=== PATIENT | male | born 1940 | race Caucasian/White ===

== ENCOUNTER 2018-03-22 11:00 | Day surgery (SDC) | payer MEDICARE, BC ==
--- NOTE | 2018-03-22 07:10 | History and Physical - [place] ---
CHIEF COMPLAINT/HISTORY OF CHIEF COMPLAINT: This patient presents with a history of intractable post lumbar laminectomy syndrome and a spinal opioid infusion system infusing Hydromorphone. Over the last number of refills a battery depletion was identified. He is here for pump battery change. PAST MEDICAL HISTORY: Chronic obstructive pulmonary disease, hypertension, and diabetes Type 2. PAST SURGICAL HISTORY: Spinal surgery, shoulder surgery, gastric bypass, shoulder replacement, hernia repair, and knee surgery. MEDICATIONS ON ADMISSION: List to be provided. ALLERGIES: ADHESIVE TAPE, LATEX AND ZITHROMAX. FAMILY/PSYCHOSOCIAL HISTORY: Social history - Caffeine. Family history - Diabetes, coronary artery disease, and cancer. SYSTEMS REVIEW: The patient is appropriate in no acute distress. The remainder of the systems review is positive for bladder dysfunction and peripheral edema. PHYSICAL EXAMINATION: Height is 5'8", weight is 170. Vital signs - Blood pressure 130/90. HEENT: Within normal limits. LUNGS: Clear. HEART: Rapid and regular. ABDOMEN: Nontender. MUSCULOSKELETAL: Examination of the musculoskeletal system shows the pump in the right flank. The incisional site is intact. Chronic pain pattern low back with a right leg extension. Motor and sensory weakness identified in the left lower extremity. Ambulation - Antalgic, assistive device utilized. NEUROLOGIC: Cranial nerves are intact. IMPRESSION: 1. POST LUMBAR LAMINECTOMY SYNDROME, ICD-10 CODE M96.1 WITH RADICULOPATHY, ICD- 10 CODE M4.16 AND M54.17. 2. IMPLANTED SPINAL INFUSION SYSTEM USING HYDROMORPHONE, BATTERY DEPLETION. PLAN: The patient is here on an outpatient basis for replacement of battery. No parameter changes have been made. JOB NUMBER: [id number] [facility]
[~2018-03-22 11:00] MED LIST: ACETAMINOPHEN 1,000 MG/100 ML BTL IV ONE; CEFAZOLIN 2 Gram 2 GM/50 ML BAG IVPB ONE; FAMOTIDINE 20MG TABLET PO ONE; MECLIZINE 25 MG TABLET PO ONE; METOCLOPRAMIDE 10 MG TABLET PO ONE
[2018-03-22] MEDS ORDERED: LIDOCAINE 2% MDV (20MG/ML) 20ML VIAL IV ONE (11:01)
[2018-03-22] MEDS ORDERED: LIDOCAINE 1% W/EPI 1:200,000 MPF 30ML SQ ONE (11:01)
[2018-03-22] MEDS ORDERED: 0.9 % SODIUM CHLORIDE 10 ML VIAL IVP ONE (11:01)
[2018-03-22] MEDS ORDERED: BUPIVACAINE 0.5% W/EPI MPF 30 ML VIAL IVP ONE (11:01)
[2018-03-22] MEDS ORDERED: PROPOFOL 10 MG/ML VIAL IV ONE (11:01)
[2018-03-22] MEDS ORDERED: FENTANYL PF 100MCG/2ML VIAL IV ONE (11:01)
[2018-03-22] MEDS ORDERED: CEFAZOLIN 1G VIAL IM ONE (11:01)
[2018-03-22] MEDS ORDERED: HYDROCODONE/APAP 7.5/325MG TABLET PO PRN ×2 (15:10)
[2018-03-22] MEDS ORDERED: OXYCODONE/APAP 10MG-325MG TABLET PO PRN (15:10)
[2018-03-22] MEDS ORDERED: BUMETANIDE 1 MG TABLET PO PRN (15:49)
[2018-03-22] MEDS ORDERED: DICYCLOMINE HCL 10 MG CAPSULE PO PRN (15:51)
[2018-03-22] MEDS ORDERED: ALBUTEROL HFA 8 GM INHALER INH PRN (15:52)
[2018-03-22] MEDS: ROPINIROLE HCL 1 MG TABLET PO SCH ×2 (16:03→21:30)
[2018-03-22] MEDS: OXYCODONE/APAP 10MG-325MG TABLET PO PRN ×2 (17:54→23:44)
[2018-03-22] MEDS: PREGABALIN (LYRICA) 100MG CAPSULE PO SCH (21:30)
[2018-03-22] MEDS: PANTOPRAZOLE SODIUM 40 MG TABLET PO SCH (21:30)
[2018-03-22] MEDS ORDERED: CALCIUM CARBONATE 500 MG TAB.CHEW PO SCH (22:00)
[2018-03-22] MEDS ORDERED: MIRTAZAPINE 15 MG TABLET PO SCH (22:00)
[2018-03-23] MEDS: OXYCODONE/APAP 10MG-325MG TABLET PO PRN ×2 (04:08→07:30)
[2018-03-23] MEDS ORDERED: LEVOTHYROXINE SODIUM 88 MCG TABLET PO SCH (07:00)
[2018-03-23] MEDS: PANTOPRAZOLE SODIUM 40 MG TABLET PO SCH (07:31)
[2018-03-23] MEDS ORDERED: ALLOPURINOL 100 MG TAB PO SCH (10:00)
[2018-03-23] MEDS ORDERED: BUMETANIDE 1 MG TABLET PO SCH (10:00)
[2018-03-23] MEDS ORDERED: POTASSIUM CHLORIDE 20 MEQ TABLET PO SCH (10:00)
[2018-03-23] MEDS ORDERED: AMIODARONE HCL 200 MG TABLET PO SCH (10:00)
[2018-03-23] MEDS ORDERED: METOPROLOL SUCC 25 MG TAB.ER PO SCH (10:00)
[2018-03-23] MEDS: PREGABALIN (LYRICA) 100MG CAPSULE PO SCH (10:11)
[2018-03-23] MEDS: ROPINIROLE HCL 1 MG TABLET PO SCH (10:13)
--- NOTE | 2018-03-23 20:33 | Operative Note ---
DATE OF SURGERY: 03/22/2018. PREOPERATIVE DIAGNOSES: 1. POST LUMBAR LAMINECTOMY SYNDROME, ICD-10 CODE = M96.1 WITH RADICULOPATHY, ICD-10 CODE = M54.16 AND M54.17. 2. IMPLANTED SPINAL OPIOID INFUSION SYSTEM HYDROMORPHONE WITH PAINFUL PUMP POUCH. SURGERY: 1. FLUOROSCOPIC-GUIDED INCISION, SUBCUTANEOUS DISSECTION, AND REMOVAL AND RELOCATION OF PUMP FROM RIGHT POSTERIOR GLUTEAL MARGIN TO RIGHT FLANK ABOVE BELT LINE. 2. REVISION SPINAL CATHETER EXTENDING REVISED CATHETER FROM PREVIOUS POUCH UP INTO NEW POUCH. NEW REVISED CATHETER INTERFACED TO EXISTING PUMP. 3. PLACEMENT OF PUMP INTO POUCH SECURING TO POSTERIOR FASCIA WITH NONABSORBABLE SUTURE AT THREE-POINT PUMP EYELETS. 4. WITH PUMP IN POUCH, PLACEMENT OF CURVED #24 GAUGE AVERY NEEDLE INTO ACCESS PORT, ASPIRATION AND CLEARING 1 ML OF CATHETER CONTENTS CLEARING CATHETER OF OPIOID AND CSF MIXTURE. 5. DIAGNOSTIC MYELOGRAPHY WITH RADIOLOGIC SUPERVISION AND INTERPRETATION CONFIRMING INTEGRITY OF THE PUMP CATHETER COMBINATION AND FUNCTIONALITY OF THE SYSTEM. 6. CLOSURE OF INCISIONS USING VICRYL FOR FASCIA, YULIYA FOR SKIN. 7. REPROGRAMMING PUMP BACK TO ORIGINAL PARAMETERS. SURGEON: REHAN MARQUEZ D.O. ANESTHESIA: LOCAL SEDATION. ANESTHESIA PROVIDER: VEDA PADILLA CRNA. INDICATIONS: This patient presents with a history of post laminectomy radiculopathy. An implanted spinal infusion system at the right posterior gluteal margin in place and working properly. Subsequent to appreciable weight loss, the pump sat directly at the belt line, which was continually being irritated causing pain. Multiple attempts at desensitizing the area failed. By his request, he is here for relocation of pump. SURGERY: Intravenous line, vital sign monitoring, IV sedation, prepped draped sterile technique, patient positioned prone. Sterile prep, sterile technique. The previous pump pouch at the right posterior gluteal margin infiltrated, incision made and subcutaneous dissection was conducted to the pump pouch. The pouch was then exteriorized, the Dacron sleeve removed. A pouch was then formed above the belt line on the right flank by patient request. Incision and subcutaneous dissection and creation of an appropriate-sized pouch. The existing pump was then from the catheter from the original pouch. The catheter was resected and interfaced with a new catheter component, which was tunneled superior into the new pouch. This revised catheter was then interfaced to the original pump. Antibiotic irrigation and Bovie for hemostasis. The pump was then placed into the new pouch and secured to the fascia with nonabsorbable suture. With the pump in the pouch, a curved #24 gauge Avery needle was inserted into the access port and 1 mL of catheter contents was aspirated clearing the catheter of opioid and CSF mixture. Diagnostic myelography was then performed. The flow characteristics showed full integrity of the pump/ catheter connection. No leaks, kinks, or bends. The tip of the catheter at T11 was identified with appropriate flow characteristics noted. Full functionality of the system was then confirmed. The incisions were both closed using Vicryl for fascia, yuliya for skin. Appropriate dressings placed. The pump was programmed back to the original parameters. He was transported to the Recovery Room stable. He will be kept overnight for observation and discharged in the morning. DISCHARGE INSTRUCTIONS: 1. The sites are to remain clean and dry. No showing or bathing in any way that would disrupt the dressings. If it happens, contact the clinic. 2. Standard medications including the antibiotic Levaquin 500 mg once a day for 14 days. 3. The office will contact the patient in 24 to 48 hours to set up an appointment in 7 to 10 days for us to evaluate the sites. Until then, activities should stay low. All other instructions provided, numbers to contact if problems given. He will be discharged in the morning. cc: Dr. Malou Hoover JOB NUMBER: [id number] [facility]
== END 2018-03-23 12:00 | disposition home health service (06) ==
LOC: SUR 11:00 → MEDSURG 14:32 → SUR 03-23 12:00
PROVIDERS: ATTEND Pain Medicine Interventional Pain Medicine
DX: M96.1 Postlaminectomy syndrome, not elsewhere classified (principal); M54.16 Radiculopathy, lumbar region; M54.17 Radiculopathy, lumbosacral region; J44.9 Chronic obstructive pulmonary disease, unspecified; I48.91 Unspecified atrial fibrillation; Z79.01 Long term (current) use of anticoagulants; M10.9 Gout, unspecified; G25.81 Restless legs syndrome; I42.9 Cardiomyopathy, unspecified
CPT/HCPCS: 62350; 62362; 01936; 62368; 94761; 94760; Q9967; J3010; J0690; C1755